=== PATIENT | female | born 2000 | race Caucasian/White ===

== ENCOUNTER 2022-10-29 12:17 | Emergency (ER) | payer OTHER ==
[~2022-10-29] VITALS: Ht 165.1 cm; Wt 65.9 kg
[2022-10-29] MEDS ORDERED: IBUPROFEN 600MG TAB PO ONE (17:40)
[2022-10-29] MEDS ORDERED: PHENAZOPYRIDINE 100 MG TAB PO ONE (17:40)
[2022-10-29] MEDS ORDERED: NITROFURANTOIN (MACROBID) 100 MG CAP PO ONE (17:40)
[2022-10-29] MEDS ORDERED: PHEN-372 PO (18:22)
[2022-10-29] MEDS ORDERED: NITR1CAP11 PO (18:22)
[2022-10-29 18:33] VITALS: BP 145/67
== END 2022-10-29 18:35 | disposition home or self-care (01) ==
LOC: M ED 12:17
DX: S09.90XA Unspecified injury of head, initial encounter (principal); N39.0 Urinary tract infection, site not specified; F31.9 Bipolar disorder, unspecified; F17.200 Nicotine dependence, unspecified, uncomplicated; Z91.040 Latex allergy status; Z79.899 Other long term (current) drug therapy